=== PATIENT | male | born 1955 | race Caucasian/White ===

== ENCOUNTER 2018-03-14 03:25 | Emergency (ER) | payer OTHER, SELFPAY ==
[~2018-03-14] VITALS: Ht 177.8 cm; Wt 80.0 kg
[2018-03-14 03:28] VITALS: BP 140/99
== END 2018-03-14 03:51 | disposition home or self-care (01) ==
LOC: ED 03:50
DX: R45.851 Suicidal ideations (principal); Z72.9 Problem related to lifestyle, unspecified; F17.200 Nicotine dependence, unspecified, uncomplicated
CPT/HCPCS: 99283